=== PATIENT | male | born 1935 | race Caucasian/White ===

== ENCOUNTER 2020-11-23 08:14 | Inpatient (IN) | payer MEDICARE, BC ==
[2020-11-23 09:10] LABS: #Lymphocytes 1.6 thou/uL (1.20-3.40); #Monocytes 0.6 thou/uL (0.11-0.59); #Neutrophils 12.2 thou/uL (1.40-6.50); %Eosinophils 0.1 % (0.0-10.0); %Lymphocytes 10.9 % (21.0-51.0); Hemoglobin 16.6 g/dL (14.0-18.0); Mean Corpuscular HGB CONC 34.7 g/dL (32.0-36.0); Mean Corpuscular Hemoglobin 33.6 pg (27.0-31.0); Mean Platelet Volume 9.1 fL (7.4-10.4); Platelet Count 185 thou/uL (130-400); RBC Distribution Width 11.7 % (11.5-14.5); Red Blood Cell (RBC) Count 4.93 mill/uL (4.70-6.10); White Blood Cell (WBC) Count 14.3 thou/uL (4.8-10.8)
--- NOTE | 2020-11-23 09:11 | RAD ---
Portable frontal chest radiograph: 11/23/2020 COMPARISON: 11/23/2006 HISTORY: Chest pain FINDINGS: There are midline sternotomy wires and atherosclerotic calcification of the aortic arch. Mi ld linear density noted in both lung bases with no focal consolidation or alveolar edema. IMPRESSION: No focal consolidation or alveolar edema.
[2020-11-23] MEDS ORDERED: Aspirin Chewable 81 MG TAB ONE (09:34)
[2020-11-23] MEDS ORDERED: Nitroglycerin 2% Ointment 1 INCH/1 GM Packet ONE (09:34)
[2020-11-23 09:35] LABS: ALT (SGPT) 42 U/L (8-55); AST (SGOT) 28 U/L (5-34); Albumin 4.8 g/dL (3.4-4.8); Alkaline Phosphatase 72 U/L (40-110); Anion Gap 19 mmol/L (10-20); BUN (Urea Nitrogen) 18 mg/dL (8.4-25.7); CK (CPK) 87 U/L (30-200); Calc. Creatinine Clearance 0 mL/min (70-130); Calcium 9.4 mg/dL (7.8-10.44); Carbon Dioxide 24 mmol/L (23-31); Chloride 103 mmol/L (98-107); Globulin 2.7 g/dL (2.4-3.5); Glucose 131 mg/dL (83-110); Lipase 24 U/L (8-78); Potassium 4.6 mmol/L (3.5-5.1); Protein, Total 7.5 g/dL (5.8-8.1); Sodium 141 mmol/L (136-145)
[2020-11-23] MEDS ORDERED: HYDROcodone/Acetaminophen 7.5/325 mg Tablet PO PRN (11:10)
[2020-11-23] MEDS ORDERED: Senokot S 8.6-50 MG TAB PO PRN (11:10)
[2020-11-23] MEDS ORDERED: Acetaminophen 325 MG TAB PO PRN (11:10)
[2020-11-23 12:37] LABS: CKMB 46.9 ng/mL (0-6.6)
[2020-11-23 12:37] LABS: Troponin I 4.456 ng/mL (< 0.028)
[2020-11-23] MEDS ORDERED: Enoxaparin Sodium 80 MG/0.8 ML SYRINGE SC SCH (13:00)
[2020-11-23 15:40] LABS: Troponin I 20.738 ng/mL (< 0.028)
[2020-11-23 15:58] VITALS: BMI 25.7
--- NOTE | 2020-11-23 16:22 | HP ---
CHIEF COMPLAINT: Chest pain. HISTORY OF PRESENT ILLNESS: An 85-year-old male with a history of coronary artery disease, status post 4-vessel CABG in 2003, presenting with left-sided chest pain that woke him up this morning. It has lasted about several hours until he came here and received aspirin and nitroglycerin. The patient did not have any nausea or diaphoresis. He was taking methylprednisolone p.o. for his allergy in the last 2 days. Other than that, he did not have any fever, productive cough, or chills. His pass worker is Dr. Le. He visited in September. They did the stress EKG, that showed luda-infarct ischemia in the inferolateral wall, where he had a prior scar. He had an echo done in 2014, showing EF of 55%, mild mitral regurgitation and tricuspid regurgitation. He also has a history of history of varicose veins and associated edema. Initial evaluation here showed a troponin negative and EKG with nonspecific ST-T wave changes. However, subsequent troponin was quite high at 3.8 and CK-MB of 46. His BNP was 104. I talked to Dr. Le personally and reviewed the clinic visit in September. I am starting him on full-dose Lovenox along with aspirin and Coreg. I talked to Dr. Vidal, who is on-call, who would likely see him today. Son is at bedside and he is also filling in with some of the history. His chest pain is more of a pressure in sensation and radiated to the jaw and left arm, associated with some tingling and it lasted until he came to the ER. REVIEW OF SYSTEMS: A 13-point review of systems reviewed with the patient. Pertinent addressed in the history of present illness. He denies any productive cough, fever, or chills. No nausea, vomiting, abdominal pain, constipation, diarrhea, hematuria, dysuria, or hematochezia. Denies headache, tingling or numbness in his extremities other than listed in the history of present illness. No polyuria or polydipsia. Denies any rash. ALLERGIES: HE HAS NO KNOWN DRUG ALLERGIES. PAST MEDICAL HISTORY: History of bradycardia, hyperlipidemia, GERD, hypertension, coronary artery disease with CABG in 2003, and sleep apnea, on CPAP at nighttime. SURGICAL HISTORY: 1. Again, CABG x4 with DIXON to LAD. 2. Prostate surgery in 1993. 3. Skin cancer in the left cheek. SOCIAL HISTORY: He smoked roughly 10 years ago. Occasional alcohol use. He lives alone. FAMILY HISTORY: Siblings had cirrhosis. Sister with hypertension. Father with coronary artery disease. MEDICATIONS: 1. Aspirin 81 mg daily. 2. Lipitor 10 mg daily. 3. Coreg 12.5 mg twice a day. PHYSICAL EXAMINATION: VITAL SIGNS: He is normotensive, afebrile this morning. GENERAL: He is alert and oriented. He has mild erythema around his eyelids and mildly swollen, probably related to his allergy that he is suffering for the last 2 days. He is nontoxic looking. HEENT: Pupils are equal, round, and reactive to light. The eyes have slight conjunctivitis secondary to allergic reaction. Eyelids are also slightly swollen. CARDIOVASCULAR: Regular rate and rhythm without murmurs, rubs, or gallops. LUNGS: Clear to auscultation bilaterally without wheezing, rales, or rhonchi. ABDOMEN: Soft, nontender, nondistended. Good bowel sounds. EXTREMITIES: Without any pitting edema. PSYCHIATRIC: Appropriate mood and affect. NEUROLOGIC: No focal deficits. LABORATORY DATA: CMP panel in the normal range except troponin first set of 0.024, second 3.84, third 4.4. WBC 14.3, hemoglobin 16.6, platelets 185. EKG, sinus rhythm with nonspecific ST-T wave changes. IMPRESSION AND PLAN: An 85-year-old male with history of coronary artery disease, status post coronary artery bypass grafting in 2003, presenting with unstable angina. 1. Unstable angina/rga-UB-mqsfiydsq myocardial infarction. 2. Coronary artery disease, status post 4-vessel coronary artery bypass grafting in 2003. 3. Hypertension. 4. Hyperlipidemia. 5. Leukocytosis without any sign of infection. The patient is admitted in the Tele. I talked to Dr. Vidal who is on-call for possible evaluation for cath. Continue with aspirin, Lovenox, Coreg, and statin. Risk factors modifications with A1c, lipid panel, as well as TSH. Allergy, probably will benefit with cetirizine, we will start that. We will get UA as chest x-ray did not show any focal consolidation or alveolar edema. Hypertension, continue with Coreg. Hyperlipidemia, he is on low-dose Lipitor, we will continue the same. Pending Cardiology evaluation. DVT prophylaxis with Lovenox therapeutic dose b.i.d. Job ID: [id number] MTDD
[2020-11-23] MEDS: Carvedilol 6.25 MG TAB PO SCH (18:11)
[2020-11-23] MEDS ORDERED: Communication Order-Pharmacy FS SCH (18:45)
[2020-11-23 19:23] LABS: CKMB 85.8 ng/mL (0-6.6)
--- NOTE | 2020-11-23 21:11 | CON ---
DATE OF CONSULTATION: 11/23/2020 REASON FOR CONSULTATION: Qjy-[id number]-gzdysdwoq myocardial infarction. HISTORY OF PRESENT ILLNESS: Mr. Saab is an 85-year-old gentleman, patient of Dr. Genaro Le with zfl-BL-gliytogop infarction. Mr. Stein said he is feeling well up until this morning. He had the onset of pain and pressure across his chest. He eventually came to the hospital, where he was found to have increased troponin level with a peak of 20.7. The patient is pain-free now. The patient's pain occurred this morning. The patient does have a history of coronary artery bypass grafting. The coronary artery bypass grafting was done by Dr. Vazquez many years ago, the computer that I am on now does not have access to the old records. We will need to try to find that, but I know he had bypass surgery many years ago by Dr. Vazquez. The patient is resting comfortably now. MEDICATIONS: At home, he was takin. Aspirin. 2. Carvedilol. 3. Atorvastatin. 4. Vascepa. ALLERGIES: NONE KNOWN. REVIEW OF SYSTEMS: CONSTITUTIONAL: No significant weight gain or loss. VISION : No changes. HEARING: No changes. PULMONARY: No cough or wheezing. GASTROINTESTINAL: No nausea, vomiting, or diarrhea. SKIN: No rashes. NEUROLOGIC: No unilateral weakness or numbness. PSYCHIATRIC: No unusual depression or anxiety. PHYSICAL EXAMINATION: GENERAL: This is a very pleasant elderly gentleman, sitting up in the chair. He wants to go home. VITAL SIGNS: Blood pressure 123/64 and pulse 60. LUNGS: Clear. CARDIAC: Normal S1, normal S2. ABDOMEN: Soft and nontender. EXTREMITIES: Warm and dry. No clubbing or cyanosis. No edema. IMAGING STUDIES: EKG, sinus rhythm, T-wave inversion in V2 and V3. ASSESSMENT: 1. Previous coronary artery bypass grafting. The family thinks it was over 20 years ago. We will try to find those records. 2. Esr-TX-xnduhchzg infarction. 3. Pain-free now. PLAN: 1. Continue Lovenox. 2. Continue aspirin. 3. Proceed to cardiac catheterization on Thursday. We will re-discuss again with him this weekend, the risks of the procedure as well. We did discuss with some degree this evening. Job ID: [id number]
[2020-11-23] MEDS: Enoxaparin Sodium 80 MG/0.8 ML SYRINGE SC SCH (21:12)
[2020-11-23] MEDS: Famotidine 20 MG TAB PO SCH (21:12)
[2020-11-23] MEDS: Atorvastatin Calcium 10 MG TAB PO SCH (21:12)
[2020-11-23 23:36] LABS: Bilirubin Negative (Negative); Blood, Urine Negative (Negative); Clarity Clear (Clear); Glucose, Urine (Dipstick) Normal (Negative); Ketone, Urine Negative (Negative); Leukocyte Negative Leu/uL (Negative); Nitrite Negative (Negative); Protein, Urine (Dipstick) Negative (Neg-Trace); Urobilinogen Normal mg/dL (Less than 2); pH, Urine 5.5 (5.0-9.0)
[2020-11-24 03:44] LABS: SARS-CoV-2 PCR by NAA Not Detected (NotDetected)
[2020-11-24 05:00] LABS: Hemoglobin A1c 5.6 % (4.0-6.0)
[2020-11-24 05:30] LABS: Cardiac Risk 3.2 (Less than 4.5)
[2020-11-24] MEDS: Famotidine 20 MG TAB PO SCH ×2 (08:55→20:45)
[2020-11-24] MEDS: Loratadine 10 MG TAB PO SCH (08:55)
[2020-11-24] MEDS: Carvedilol 6.25 MG TAB PO SCH ×2 (08:55→16:10)
[2020-11-24] MEDS: Aspirin 81 mg Enteric Coated Tablet PO SCH (08:55)
[2020-11-24] MEDS: Enoxaparin Sodium 80 MG/0.8 ML SYRINGE SC SCH ×2 (08:56→20:44)
[2020-11-24] MEDS ORDERED: Enoxaparin Sodium 40 MG/0.4 ML SYRINGE SC SCH (09:00)
[2020-11-24] MEDS ORDERED: Senokot 8.6 MG TAB PO PRN (12:55)
--- NOTE | 2020-11-24 19:37 | PDOC.HOSPP ---
- Subjective Encounter Date: 11/24/20 Subjective: Patient feels well. Denies any specific complaints. Had several questions regarding heart cath. Mostly concerned that it may be painful. - Objective Vital Signs & Weight: Vital Signs (12 hours) Temp Pulse Resp BP BP Pulse Ox 11/24/20 16:14 98.4 F 57 L 16 145/67 H 98 11/24/20 16:10 137/63 11/24/20 11:50 97.6 F 66 16 121/64 96 11/24/20 08:55 137/63 11/24/20 07:36 97.7 F 62 16 106/62 94 L Weight Weight 184 lb 9.6 oz Result Diagrams: 11/23/20 08:57 11/23/20 08:57 Hospitalist ROS - Medication Medications: Active Medications Generic Name Dose Route Start Last Admin Trade Name Freq PRN Reason Stop Dose Admin Aspirin 81 mg 11/24/20 09:00 11/24/20 08:55 Aspirin 81 Mg Enteric Coated Tablet PO 81 mg DAILY MENG Administration Atorvastatin Calcium 10 mg 11/23/20 21:00 11/23/20 21:12 Atorvastatin Calcium 10 Mg Tab PO 10 mg HS MENG Administration Carvedilol 12.5 mg 11/23/20 17:00 11/24/20 16:10 Carvedilol 6.25 Mg Tab PO Not Given BID-[facility] Enoxaparin Sodium 80 mg 11/23/20 21:00 11/24/20 08:56 Enoxaparin Sodium 80 Mg/0.8 Ml Syringe SC 11/25/20 21:30 80 mg 0900,2100 MENG Administration Famotidine 20 mg 11/23/20 21:00 11/24/20 08:55 Famotidine 20 Mg Tab PO 20 mg BID MENG Administration Loratadine 10 mg 11/24/20 09:00 11/24/20 08:55 Loratadine 10 Mg Tab PO 10 mg DAILY MENG Administration - Exam General Appearance: NAD, awake alert Eye: PERRL Neck: supple, symmetric, no JVD, no thyromegaly, no lymphadenopathy, no carotid bruit Heart: RRR, no murmur, no gallops, no rubs, normal peripheral pulses Respiratory: CTAB, no wheezes, no rales, no ronchi, normal chest expansion, no tachypnea, normal percussion Gastrointestinal: soft, non-tender, non-distended, normal bowel sounds, no palpable masses, no hepatomegaly, no splenomegaly, no bruit Extremities: no cyanosis, no clubbing, no edema Skin: normal turgor Psychiatric: normal affect, normal behavior, A&O x 3 Hosp A/P (1) NSTEMI (non-ST elevated myocardial infarction) Code(s): I21.4 - NON-ST ELEVATION (NSTEMI) MYOCARDIAL INFARCTION Status: Acute (2) Coronary artery disease Code(s): I25.10 - ATHSCL HEART DISEASE OF [place] CORONARY ARTERY W/O ANG PCTRS Status: Acute (3) Hypertension Code(s): I10 - ESSENTIAL (PRIMARY) HYPERTENSION Status: Acute (4) Hyperlipidemia Code(s): E78.5 - HYPERLIPIDEMIA, UNSPECIFIED Status: Acute (5) Leukocytosis Code(s): D72.829 - ELEVATED WHITE BLOOD CELL COUNT, UNSPECIFIED Status: Acute - Plan NSTEMI in a patient with known CAD: Appreciate cardiology consult. Plan is for heart cath on Thursday. Discussed the procedure with the patient. Continue therapeutic dosing of Lovenox. Continue aspirin and statin. Leukocytosis: Patient has no overt signs of infection. We will reassess CBC in the morning. Hypertension: Continue home medications. Hyperlipidemia: Continue home medicines.
[2020-11-24] MEDS: Atorvastatin Calcium 10 MG TAB PO SCH (20:44)
[2020-11-25] MEDS: Famotidine 20 MG TAB PO SCH ×2 (09:12→21:23)
[2020-11-25] MEDS: Aspirin 81 mg Enteric Coated Tablet PO SCH (09:12)
[2020-11-25] MEDS: Carvedilol 6.25 MG TAB PO SCH ×2 (09:12→15:59)
[2020-11-25] MEDS: Enoxaparin Sodium 80 MG/0.8 ML SYRINGE SC SCH ×2 (09:12→21:23)
[2020-11-25] MEDS: Loratadine 10 MG TAB PO SCH (09:12)
--- NOTE | 2020-11-25 10:33 | PDOC.HOSPP ---
- Subjective Encounter Date: 11/25/20 Subjective: Feels well. No complaints. Denies any chest pain. - Objective Vital Signs & Weight: Vital Signs (12 hours) Temp Pulse Resp BP BP BP Pulse Ox 11/25/20 09:12 137/63 11/25/20 07:10 98.3 F 62 16 157/74 H 96 11/25/20 04:51 97.6 F 65 16 137/76 96 11/25/20 00:00 59 L 146/71 H Weight Weight 182 lb 14.4 oz I&O: 11/24/20 11/25/20 11/26/20 06:59 06:59 06:59 Intake Total 370 Balance 370 Result Diagrams: 11/23/20 08:57 11/23/20 08:57 Hospitalist ROS - Medication Medications: Active Medications Generic Name Dose Route Start Last Admin Trade Name Freq PRN Reason Stop Dose Admin Aspirin 81 mg 11/24/20 09:00 11/25/20 09:12 Aspirin 81 Mg Enteric Coated Tablet PO 81 mg DAILY MENG Administration Atorvastatin Calcium 10 mg 11/23/20 21:00 11/24/20 20:44 Atorvastatin Calcium 10 Mg Tab PO 10 mg HS MENG Administration Carvedilol 12.5 mg 11/23/20 17:00 11/25/20 09:12 Carvedilol 6.25 Mg Tab PO 12.5 mg BID-WM MENG Administration Enoxaparin Sodium 80 mg 11/23/20 21:00 11/25/20 09:12 Enoxaparin Sodium 80 Mg/0.8 Ml Syringe SC 11/25/20 21:30 80 mg 0900,2100 MENG Administration Famotidine 20 mg 11/23/20 21:00 11/25/20 09:12 Famotidine 20 Mg Tab PO 20 mg BID MENG Administration Loratadine 10 mg 11/24/20 09:00 11/25/20 09:12 Loratadine 10 Mg Tab PO 10 mg DAILY MENG Administration Senna 2 tab 11/24/20 12:55 11/25/20 09:16 Senokot 8.6 Mg Tab PO 2 tab HSPRN PRN Administration Constipation - Exam General Appearance: NAD, awake alert Heart: RRR, no murmur, no gallops, no rubs, normal peripheral pulses Respiratory: CTAB Gastrointestinal: soft, non-tender, non-distended, normal bowel sounds, no palpable masses, no hepatomegaly, no splenomegaly, no bruit Extremities: no cyanosis, no clubbing, no edema Psychiatric: normal affect, normal behavior, A&O x 3 Hosp A/P (1) NSTEMI (non-ST elevated myocardial infarction) Code(s): I21.4 - NON-ST ELEVATION (NSTEMI) MYOCARDIAL INFARCTION Status: Acute (2) Coronary artery disease Code(s): I25.10 - ATHSCL HEART DISEASE OF [place] CORONARY ARTERY W/O ANG PCTRS Status: Acute (3) Hypertension Code(s): I10 - ESSENTIAL (PRIMARY) HYPERTENSION Status: Acute (4) Hyperlipidemia Code(s): E78.5 - HYPERLIPIDEMIA, UNSPECIFIED Status: Acute (5) Leukocytosis Code(s): D72.829 - ELEVATED WHITE BLOOD CELL COUNT, UNSPECIFIED Status: Acute - Plan NSTEMI in a patient with known CAD: Appreciate cardiology consult. Plan is for heart cath on Thursday. Discussed the procedure with the patient. Continue therapeutic dosing of Lovenox. Continue aspirin and statin. Leukocytosis: Patient has no overt signs of infection. We will reassess CBC in the morning. Hypertension: Continue home medications. Hyperlipidemia: Continue home medicines.
[2020-11-25 10:53] LABS: #Basophils 0.1 thou/uL (0.0-0.2); #Eosinphils 0.2 thou/uL (0.0-0.7); #Lymphocytes 2.4 thou/uL (1.20-3.40); #Monocytes 0.7 thou/uL (0.11-0.59); #Neutrophils 3.9 thou/uL (1.40-6.50); %Basophils 0.8 % (0.0-1.0); %Eosinophils 2.6 % (0.0-10.0); %Lymphocytes 33.4 % (21.0-51.0); %Monocytes 9.4 % (0.0-10.0); %Neutrophils 53.9 % (42.0-75.0); Hemoglobin 14.9 g/dL (14.0-18.0); Mean Corpuscular HGB CONC 33.6 g/dL (32.0-36.0); Mean Corpuscular Hemoglobin 33.1 pg (27.0-31.0); Mean Corpuscular Volume 98.3 fL (78.0-98.0); Mean Platelet Volume 9.2 fL (7.4-10.4); Platelet Count 148 thou/uL (130-400); RBC Distribution Width 11.8 % (11.5-14.5); Red Blood Cell (RBC) Count 4.49 mill/uL (4.70-6.10); White Blood Cell (WBC) Count 7.2 thou/uL (4.8-10.8)
[2020-11-25 11:12] LABS: Anion Gap 16 mmol/L (10-20); BUN (Urea Nitrogen) 19 mg/dL (8.4-25.7); Calc. Creatinine Clearance 60 mL/min (70-130); Calcium 8.6 mg/dL (7.8-10.44); Carbon Dioxide 26 mmol/L (23-31); Chloride 102 mmol/L (98-107); Glucose 142 mg/dL (83-110); Sodium 140 mmol/L (136-145)
[2020-11-25] MEDS: Atorvastatin Calcium 10 MG TAB PO SCH (21:23)
[2020-11-26 04:42] LABS: #Basophils 0.1 thou/uL (0.0-0.2); #Eosinphils 0.3 thou/uL (0.0-0.7); #Lymphocytes 3.3 thou/uL (1.20-3.40); #Monocytes 0.8 thou/uL (0.11-0.59); #Neutrophils 3.1 thou/uL (1.40-6.50); %Basophils 1.1 % (0.0-1.0); %Monocytes 11.1 % (0.0-10.0); %Neutrophils 40.9 % (42.0-75.0); Hemoglobin 14.9 g/dL (14.0-18.0); Mean Corpuscular HGB CONC 33.7 g/dL (32.0-36.0); Mean Corpuscular Hemoglobin 32.5 pg (27.0-31.0); Mean Corpuscular Volume 96.2 fL (78.0-98.0); Mean Platelet Volume 9.2 fL (7.4-10.4); Platelet Count 155 thou/uL (130-400); RBC Distribution Width 11.7 % (11.5-14.5); White Blood Cell (WBC) Count 7.6 thou/uL (4.8-10.8)
[2020-11-26 04:47] LABS: Anion Gap 14 mmol/L (10-20); BUN (Urea Nitrogen) 19 mg/dL (8.4-25.7); Calc. Creatinine Clearance 54 mL/min (70-130); Calcium 8.7 mg/dL (7.8-10.44); Carbon Dioxide 27 mmol/L (23-31); Chloride 103 mmol/L (98-107); Glucose 111 mg/dL (83-110); Potassium 4.2 mmol/L (3.5-5.1); Sodium 140 mmol/L (136-145)
[2020-11-26] MEDS: Sodium Chloride 0.9% 1,000 ML IV SCH ×2 (05:42→19:33)
[2020-11-26] MEDS: Carvedilol 6.25 MG TAB PO SCH ×2 (05:42→17:51)
[2020-11-26] MEDS: Famotidine 20 MG TAB PO SCH ×2 (05:43→20:29)
[2020-11-26] MEDS: Loratadine 10 MG TAB PO SCH (05:43)
[2020-11-26] MEDS: Aspirin 81 mg Enteric Coated Tablet PO SCH (05:43)
--- NOTE | 2020-11-26 10:14 | PDOC.CPN ---
- Subjective Date: 11/26/20 Time: 10:12 Interval history: No new over night events. - Review of Systems General: denies: fever/chills, weight/appetite/sleep changes, night sweats, fatigue Respiratory: denies: cough, congestion, shortness of breath, exercise intolerance Cardiovascular: denies: chest pain, palpitation, edema, paroxysmal nocturnal dyspnea, orthopnea Gastrointestinal: denies: nausea, vomiting, diarrhea, constipation, abd pain, GI bleeding Musculoskeletal: denies: pain, tenderness, stiffness, swelling, arthritis/arthralgias Neurological: denies: numbness, syncope, seizure, weakness - Objective Allergies/Adverse Reactions: Allergies Allergy/AdvReac Type Severity Reaction Status Date / Time No Known Allergies Allergy Unverified 11/23/20 11:53 Visit Medications: Current Medications Acetaminophen (Acetaminophen 325 Mg Tab) 650 mg PO Q4H PRN PRN Reason: Headache/Fever/Mild Pain (1-3) Hydrocodone Bitart/Acetaminophen (Hydrocodone/Acetaminophen 7.5/325 Mg Tablet) 1 tab PO Q4H PRN PRN Reason: Moderate Pain (4-6) Aspirin (Aspirin 81 Mg Enteric Coated Tablet) 81 mg PO DAILY [facility] Last Admin: 11/26/20 05:43 Dose: 81 mg Documented by: Atorvastatin Calcium (Atorvastatin Calcium 10 Mg Tab) 10 mg PO [facility] Last Admin: 11/25/20 21:23 Dose: 10 mg Documented by: Carvedilol (Carvedilol 6.25 Mg Tab) 12.5 mg PO BID-[facility] Last Admin: 11/26/20 05:42 Dose: 12.5 mg Documented by: Famotidine (Famotidine 20 Mg Tab) 20 mg PO BID [facility] Last Admin: 11/26/20 05:43 Dose: 20 mg Documented by: Sodium Chloride (Normal Saline 0.9%) 1,000 mls @ 100 mls/hr IV .Q10H [facility] Last Admin: 11/26/20 05:42 Dose: 1,000 mls Documented by: Loratadine (Loratadine 10 Mg Tab) 10 mg PO DAILY [facility] Last Admin: 11/26/20 05:43 Dose: 10 mg Documented by: Senna (Senokot 8.6 Mg Tab) 2 tab PO HSPRN PRN PRN Reason: Constipation Last Admin: 11/25/20 09:16 Dose: 2 tab Documented by: Senna/Docusate Sodium (Senokot S 8.6-50 Mg Tab) 2 tab PO BID PRN PRN Reason: Constipation Vital Signs & Weight: Vital Signs Temp Pulse Resp BP BP BP Pulse Ox 11/26/20 07:10 97.9 F 63 18 138/72 96 11/26/20 05:42 137/63 11/26/20 04:00 97.7 F 63 20 128/71 96 Weight 182 lb 14.4 oz - Quality Measures Condition: Coronary Artery Disease CV meds: Beta Shantelle: Yes, Statin: Yes, ASA: Yes - Physical Exam General: alert & oriented x3 Neck: no JVD/HJR Cardiac: regular rate and rhythm Lungs: clear to auscultation Neuro: grossly intact Abdomen: unremarkable Extremities: no edema Musculoskeletal: normal range of motion - Labs Result Diagrams: 11/26/20 03:30 11/26/20 03:30 Troponin/CKMB CK-MB (CK-2) 85.8 ng/mL (0-6.6) H* 11/23/20 17:58 Troponin I 28.956 ng/mL (< 0.028) H* 11/23/20 17:58 - Telemetry Sinus rhythms and dysrhythmias: sinus rhythm - Assessment/Plan Assessment/Plan: 1. CAD. s/p CABG 20 yrs ago. 2. NSTEMI. Plan for cath today. Procedure / risks explained to pt . to include bleeding,infection,NV,CVA, allergic reaction, renal injury or . He agrees to proceed. 3. HTN: stable. Add Jay-I. 4. Dyslipidemia: continue statins.
--- NOTE | 2020-11-26 11:55 | PDOC.HOSPP ---
- Subjective Encounter Date: 11/26/20 Subjective: Doing well. Only concern is that he is hungry and the procedure is being a bit delayed. - Objective Vital Signs & Weight: Vital Signs (12 hours) Temp Pulse Resp BP BP BP Pulse Ox 11/26/20 07:10 97.9 F 63 18 138/72 96 11/26/20 05:42 137/63 11/26/20 04:00 97.7 F 63 20 128/71 96 Weight Weight 182 lb 14.4 oz I&O: 11/25/20 11/26/20 11/27/20 06:59 06:59 06:59 Intake Total 370 900 Balance 370 900 Result Diagrams: 11/26/20 03:30 11/26/20 03:30 Hospitalist ROS - Medication Medications: Active Medications Generic Name Dose Route Start Last Admin Trade Name Freq PRN Reason Stop Dose Admin Aspirin 81 mg 11/24/20 09:00 11/26/20 05:43 Aspirin 81 Mg Enteric Coated Tablet PO 81 mg DAILY MENG Administration Atorvastatin Calcium 10 mg 11/23/20 21:00 11/25/20 21:23 Atorvastatin Calcium 10 Mg Tab PO 10 mg HS MENG Administration Carvedilol 12.5 mg 11/23/20 17:00 11/26/20 05:42 Carvedilol 6.25 Mg Tab PO 12.5 mg BID-WM MENG Administration Famotidine 20 mg 11/23/20 21:00 11/26/20 05:43 Famotidine 20 Mg Tab PO 20 mg BID MENG Administration Sodium Chloride 1,000 mls @ 100 mls/hr 11/26/20 06:00 11/26/20 05:42 Normal Saline 0.9% IV 1,000 mls .Q10H MENG Administration Loratadine 10 mg 11/24/20 09:00 11/26/20 05:43 Loratadine 10 Mg Tab PO 10 mg DAILY MENG Administration Senna 2 tab 11/24/20 12:55 11/25/20 09:16 Senokot 8.6 Mg Tab PO 2 tab HSPRN PRN Administration Constipation - Exam General Appearance: NAD, awake alert Heart: RRR, no murmur, no gallops, no rubs, normal peripheral pulses Respiratory: CTAB, no wheezes, no rales, no ronchi, normal chest expansion, no tachypnea, normal percussion Gastrointestinal: soft, non-tender, non-distended, normal bowel sounds, no palpable masses, no hepatomegaly, no splenomegaly, no bruit Extremities: no cyanosis, no clubbing, no edema Skin: normal turgor Neurological: no focal deficits Musculoskeletal: normal tone, normal strength, no muscle wasting Psychiatric: normal affect, normal behavior, A&O x 3 Hosp A/P (1) NSTEMI (non-ST elevated myocardial infarction) Code(s): I21.4 - NON-ST ELEVATION (NSTEMI) MYOCARDIAL INFARCTION Status: Acute (2) Coronary artery disease Code(s): I25.10 - ATHSCL HEART DISEASE OF [place] CORONARY ARTERY W/O ANG PCTRS Status: Acute (3) Hypertension Code(s): I10 - ESSENTIAL (PRIMARY) HYPERTENSION Status: Acute (4) Hyperlipidemia Code(s): E78.5 - HYPERLIPIDEMIA, UNSPECIFIED Status: Acute (5) Leukocytosis Code(s): D72.829 - ELEVATED WHITE BLOOD CELL COUNT, UNSPECIFIED Status: Acute - Plan NSTEMI in a patient with known CAD: Appreciate cardiology consult. Plan is for heart cath today. Continue therapeutic dosing of Lovenox. Continue aspirin and statin. Leukocytosis: Patient has no overt signs of infection. Rapidly resolved without intervention. Hypertension: Continue home medications. Hyperlipidemia: Continue home medicines.
[2020-11-26] MEDS ORDERED: Heparin 10,000 UNITS/ 10 ML VIAL ONE (12:00)
[2020-11-26] MEDS ORDERED: TICAGRELOR 90 MG TABLET ONE (12:02)
[2020-11-26] MEDS ORDERED: Nitroglycerin 100MG/250ML BOT 250 ML ONE (12:30)
[2020-11-26] MEDS ORDERED: Morphine 2 MG/ML VIAL SLOW IVP PRN (13:09)
[2020-11-26] MEDS ORDERED: Nitroglycerin 0.4 MG TAB (25 Tab Bottle) SL PRN (13:09)
[2020-11-26] MEDS ORDERED: Ondansetron PF 4 MG/2 ML Vial ONE (16:05)
[2020-11-26] MEDS ORDERED: Atropine Sulfate 1 mg/10 ml Syringe ONE (16:05)
[2020-11-26] MEDS: Atorvastatin Calcium 10 MG TAB PO SCH (20:29)
[2020-11-26] MEDS: TICAGRELOR 90 MG TABLET PO SCH (20:29)
[2020-11-27] MEDS: Sodium Chloride 0.9% 1,000 ML IV SCH (00:54)
[2020-11-27 04:47] LABS: #Eosinphils 0.2 thou/uL (0.0-0.7); #Lymphocytes 2.2 thou/uL (1.20-3.40); #Monocytes 0.9 thou/uL (0.11-0.59); #Neutrophils 5.6 thou/uL (1.40-6.50); %Basophils 0.3 % (0.0-1.0); %Eosinophils 2.3 % (0.0-10.0); %Lymphocytes 24.3 % (21.0-51.0); %Monocytes 10.1 % (0.0-10.0); %Neutrophils 63.1 % (42.0-75.0); Hemoglobin 14.7 g/dL (14.0-18.0); Mean Corpuscular HGB CONC 34.6 g/dL (32.0-36.0); Mean Corpuscular Hemoglobin 33.1 pg (27.0-31.0); Mean Corpuscular Volume 95.8 fL (78.0-98.0); Mean Platelet Volume 9.2 fL (7.4-10.4); Platelet Count 161 thou/uL (130-400); RBC Distribution Width 11.7 % (11.5-14.5); Red Blood Cell (RBC) Count 4.45 mill/uL (4.70-6.10); White Blood Cell (WBC) Count 8.9 thou/uL (4.8-10.8)
[2020-11-27 05:06] LABS: ALT (SGPT) 59 U/L (8-55); AST (SGOT) 51 U/L (5-34); Albumin 3.9 g/dL (3.4-4.8); Alkaline Phosphatase 61 U/L (40-110); Anion Gap 16 mmol/L (10-20); BUN (Urea Nitrogen) 16 mg/dL (8.4-25.7); Bilirubin, Total 0.9 mg/dL (0.2-1.2); Calc. Creatinine Clearance 65 mL/min (70-130); Calcium 8.6 mg/dL (7.8-10.44); Carbon Dioxide 23 mmol/L (23-31); Chloride 107 mmol/L (98-107); Glucose 98 mg/dL (83-110); Potassium 4.2 mmol/L (3.5-5.1); Protein, Total 5.9 g/dL (5.8-8.1); Sodium 142 mmol/L (136-145)
[2020-11-27 05:11] LABS: Critical Call Chem Troponin I RESULT DECREASING; Troponin I 4.128 ng/mL (< 0.028)
[2020-11-27 07:42] VITALS: TEMP 98.2
[2020-11-27] MEDS: Carvedilol 6.25 MG TAB PO SCH (08:47)
[2020-11-27] MEDS: TICAGRELOR 90 MG TABLET PO SCH (08:47)
[2020-11-27] MEDS: Aspirin 81 mg Enteric Coated Tablet PO SCH (08:48)
[2020-11-27] MEDS: Famotidine 20 MG TAB PO SCH (08:48)
[2020-11-27] MEDS: Loratadine 10 MG TAB PO SCH (08:48)
[2020-11-27] MEDS ORDERED: Lisinopril 5 MG TAB PO SCH ×3 (09:00→09:30)
[2020-11-27] MEDS ORDERED: Lisinopril 10 MG TAB PO SCH (09:00)
[2020-11-27 11:17] VITALS: BP 149/70
--- NOTE | 2020-11-27 11:23 | EKG ---
Test Reason : S/P CATH Blood Pressure : / mmHG Vent. Rate : 059 BPM Atrial Rate : 059 BPM P-R Int : 226 ms QRS Dur : 080 ms QT Int : 472 ms P-R-T Axes : 073 025 240 degrees QTc Int : 467 ms Sinus bradycardia with 1st degree A-V block Cannot rule out Inferior infarct , age undetermined T wave abnormality, consider lateral ischemia Abnormal ECG No previous ECGs available Confirmed by ÁNGEL MALIN ([id number]) on 11/27/2020 11:22:43 AM Referred By: JOSE MARTIN Confirmed By:ÁNGEL MALIN
--- NOTE | 2020-11-27 11:29 | EKG ---
Test Reason : Blood Pressure : / mmHG Vent. Rate : 059 BPM Atrial Rate : 059 BPM P-R Int : 200 ms QRS Dur : 078 ms QT Int : 472 ms P-R-T Axes : 080 043 244 degrees QTc Int : 467 ms Sinus bradycardia T wave abnormality, consider inferolateral ischemia Prolonged QT Abnormal ECG Confirmed by ÁNGEL MALIN ([id number]) on 11/27/2020 11:28:50 AM Referred By: JOSE MARTIN Confirmed By:ÁNGEL MALIN
--- NOTE | 2020-11-28 06:48 | DIS ---
DATE OF ADMISSION: 11/24/2020 DATE OF DISCHARGE: 11/27/2020 DISCHARGE DISPOSITION: To home. PRIMARY DISCHARGE DIAGNOSIS: Non-ST elevation myocardial infarction, status post stent to mid circumflex. SECONDARY DISCHARGE DIAGNOSES: Coronary artery disease, hypertension, dyslipidemia, prior history of coronary artery bypass graft 20 years ago. PROCEDURES DONE DURING HOSPITALIZATION: Chest x-ray done on the day of admission showed no acute infiltrate. Coronary angiogram done by Dr. Le on 11/24/2020. The patient had successful drug-eluting stent placed to mid circumflex. Elim Ira LAD 100% occlusion, left circumflex 95% mid with PTCA/stent, RCA 100% mid. DIXON to LAD, no stenosis. Distal LAD was less than 0.5 mm. Saphenous vein graft to OM2 was 100% occluded. Saphenous vein graft to RCA was patent. Radial to diagonal was patent. Ejection fraction was 50% to 55% on the coronary angiogram. H and H 14 and 42, platelet count 161, white count of 8.9, MCV 95. Discharge BUN and creatinine were 16 and 1.0. Troponin peaking up to 28.9, CK-MB of 85.8. Total cholesterol 141, triglycerides 123, LDL 72, HDL 44. COVID-19 PCR was not detected. DISCHARGE MEDICATIONS: 1. Aspirin 81 mg p.o. daily. 2. Plavix 75 mg p.o. daily. 3. Vascepa 1 g p.o. daily. 4. Lipitor 10 mg p.o. daily. 5. Carvedilol 12.5 mg twice daily. 6. Lisinopril 10 mg p.o. daily. INPATIENT CONSULT: Dr. Le for Cardiology. ALLERGIES: NO KNOWN DRUG ALLERGIES. DISCHARGE PLAN: The patient to follow up with Dr. Le in 3 to 4 weeks, and with Dr. Sewell, his primary care physician in 1 week. BRIEF COURSE DURING HOSPITALIZATION: The patient initially got admitted on the with complaints of chest pain. He had known history of CABG for four-vessel disease done in 2003. His initial troponin was elevated. This peaked up to 28. He has had consultation with Dr. Le for Cardiology. The patient has had coronary angiogram done on the with successful placement of drug-eluting stent to mid circumflex. He was placed on aspirin and Plavix postprocedure. The patient's medications were optimized as well by Dr. Le. Mr. Saab is ambulating and eating well and wanting to go home today. He was counseled with regard to medication compliance and followups. Please note, I have seen and examined the patient on the day of discharge. Job ID: [id number] MTDD
[2020-11-28] MEDS ORDERED: Clopidogrel Bisulfate 75 MG TAB PO SCH (09:00)
--- NOTE | 2020-12-15 22:15 | EKG ---
Test Reason : Blood Pressure : / mmHG Vent. Rate : 064 BPM Atrial Rate : 064 BPM P-R Int : 200 ms QRS Dur : 080 ms QT Int : 432 ms P-R-T Axes : 085 053 096 degrees QTc Int : 445 ms Normal sinus rhythm Abnormal ECG Confirmed by TERRIE ROWE DO ([id number]), production editor SD REDDING ([id number]) on 12/15/2020 10:15:44 PM Referred By: Confirmed By:TERRIE ROWE DO
== END 2020-11-27 13:19 | disposition home or self-care (01) | DRG 247 ==
LOC: ERS 08:14 → ERHOLD 11:09 → 2NO 15:22 → OBSVTOIN 11-24 19:51
PROVIDERS: ADMIT Internal Medicine; ATTEND Internal Medicine
PROC: 027034Z Dilation of Coronary Artery, One Artery with Drug-eluting Intraluminal Device, Percutaneous Approach (ICD-10-PCS; principal; 2020-11-26)
PROC: 4A023N7 Measurement of Cardiac Sampling and Pressure, Left Heart, Percutaneous Approach (ICD-10-PCS; 2020-11-26)
PROC: B2111ZZ Fluoroscopy of Multiple Coronary Arteries using Low Osmolar Contrast (ICD-10-PCS; 2020-11-26)
PROC: B2151ZZ Fluoroscopy of Left Heart using Low Osmolar Contrast (ICD-10-PCS; 2020-11-26)
PROC: B2131ZZ Fluoroscopy of Multiple Coronary Artery Bypass Grafts using Low Osmolar Contrast (ICD-10-PCS; 2020-11-26)
DX: I21.4 Non-ST elevation (NSTEMI) myocardial infarction (principal); Z20.822 Contact with and (suspected) exposure to COVID-19; E78.5 Hyperlipidemia, unspecified; I08.1 Rheumatic disorders of both mitral and tricuspid valves; K21.9 Gastro-esophageal reflux disease without esophagitis; F17.210 Nicotine dependence, cigarettes, uncomplicated; I25.110 Atherosclerotic heart disease of native coronary artery with unstable angina pectoris; D72.829 Elevated white blood cell count, unspecified; G47.30 Sleep apnea, unspecified; Z95.1 Presence of aortocoronary bypass graft; Z85.828 Personal history of other malignant neoplasm of skin; Z79.899 Other long term (current) drug therapy; Z79.82 Long term (current) use of aspirin; Z82.49 Family history of ischemic heart disease and other diseases of the circulatory system
CPT/HCPCS: 36415; 71045; 80048; 80053; 80061; 81003; 82550; 82553; 83036; 83690; 83880; 84443; 84484; 85025; 85347; 87635; 92928; 93005; 93010; 93459; 93798; C9600; G0378; J0461; J1644; J1650; J2405; U0003; U0005